=== PATIENT | male | born 1975 | race Caucasian/White ===

== ENCOUNTER 2018-01-27 12:18 | Emergency (ER) | payer OTHER ==
[~2018-01-27] VITALS: Ht 182.9 cm; Wt 87.6 kg
[2018-01-27 12:24] VITALS: TEMP 36.8; Ht 182.9 cm; Wt 87.6 kg
[2018-01-27] MEDS ORDERED: ONDANSETRON INJ 2 MG/ML 2 ML VIAL ONE (12:45)
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
[2018-01-27] MEDS ORDERED: NURSING VERBAL MED ORDER ONE (12:50)
[2018-01-27] MEDS ORDERED: OPTIRAY 320 IV PRN (13:00)
[2018-01-27 13:04] LABS: BASO % 0.1 %; BASO ABS # 0.01 K/uL (0-0.2); EOS % 0.9 %; EOS ABS # 0.09 K/uL (0-0.5); HEMATOCRIT 41.7 % (42-52); HEMOGLOBIN 14.6 g/dL (14.0-18.0); IG# 0.02 K/uL (0.00-0.02); LYMPH % 14.4 %; LYMPH ABS # 1.46 K/uL (1.2-3.4); MEAN CELL VOLUME 83.7 fL (80-100); MEAN CORPUSCULAR HEMOGLOBIN 29.3 pg (25-34); MEAN PLATELET VOLUME 9.9 fL (7.4-10.4); MONO % 8.6 %; MONO ABS # 0.87 K/uL (0.11-0.59); NEUT % 75.8 %; NEUT ABS # 7.72 K/uL (1.4-6.5); PLATELET COUNT 192 K/uL (130-400); RED CELL DISTRIBUTION WIDTH CV 12.8 % (11.5-14.5); RED CELL DISTRIBUTION WIDTH SD 38.4 fL (36.4-46.3); WHITE BLOOD COUNT 10.17 K/uL (4.8-10.8)
[2018-01-27 13:20] LABS: ISTAT CREATININE 0.9 mg/dl (0.6-1.3); ISTAT IONIZED CALCIUM 1.13 mmol/l (1.12-1.32); ISTAT POTASSIUM 3.5 mEq/L (3.3-5.0)
[2018-01-27 13:26] LABS: ALBUMIN 3.8 gm/dl (3.4-5.0); ALKALINE PHOSPHATASE 86 U/L (45-117); ALT/SGPT 42 U/L (12-78); AST/SGOT 29 U/L (15-37); BLOOD UREA NITROGEN 14 mg/dl (7-18); CALCIUM 8.3 mg/dl (8.5-10.1); CARBON DIOXIDE 28 mmol/L (21-32); GLUCOSE 104 mg/dl (70-99); LIPASE 79 U/L (73-393); POTASSIUM 3.5 mmol/L (3.5-5.1); SODIUM 139 mmol/L (136-145); TOTAL PROTEIN 7.4 gm/dl (6.4-8.2)
[2018-01-27] MEDS ORDERED: PATIENT'S ALLERGY INFO NEEDS ENTERED SCH (13:30)
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
--- NOTE | 2018-01-27 14:17 | DIAGNOSTIC IMAGING REPORT ---
CT (CHEST) THORAX WITH CT DOSE: 1632.02 mGycm HISTORY: Pain trauma TECHNIQUE: Multiaxial CT images of the chest were performed following the intravenous administration of contrast. A dose lowering technique was utilized adhering to the principles of ALARA. COMPARISON: None. FINDINGS: The lungs are clear. The mediastinal vascular structures are within normal limits. No mediastinal or hilar lymphadenopathy. No pleural effusion or pneumothorax. Limited views of the upper abdomen demonstrate a normal liver and spleen. IMPRESSION: No significant abnormality identified within the chest. The above report was generated using voice recognition software. It may contain grammatical, syntax or spelling errors. Electronically signed by: Cesar Herrera M.D. 01/27/2018 2:16 PM Dictated Date/Time: 01/27/2018 2:13 PM
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
--- NOTE | 2018-01-27 14:50 | DIAGNOSTIC IMAGING REPORT ---
R FEMUR 2 VIEWS ROUTINE CLINICAL HISTORY: trauma/pain pain COMPARISON: None. DISCUSSION: The bones and joint spaces appear intact. There is no evidence of fracture, dislocation or bony disease. There is no evidence for soft tissue swelling. IMPRESSION: Negative study. The above report was generated using voice recognition software. It may contain grammatical, syntax or spelling errors. Electronically signed by: Cesar Herrera M.D. 01/27/2018 2:49 PM Dictated Date/Time: 01/27/2018 2:48 PM
--- NOTE | 2018-01-27 14:51 | DIAGNOSTIC IMAGING REPORT ---
L KNEE 1 OR 2 VIEWS ROUTINE CLINICAL HISTORY: trauma, pain COMPARISON: None. DISCUSSION: No acute bony abnormality. Soft tissue disruption superior and lateral to the patella. No well-defined fracture or air-fluid level. No fat fluid level. IMPRESSION: Soft tissue disruption. No acute bony abnormality. The above report was generated using voice recognition software. It may contain grammatical, syntax or spelling errors. Electronically signed by: Cesar Herrera M.D. 01/27/2018 2:50 PM Dictated Date/Time: 01/27/2018 2:49 PM
--- NOTE | 2018-01-27 14:52 | DIAGNOSTIC IMAGING REPORT ---
L FEMUR 2 VIEWS ROUTINE CLINICAL HISTORY: trauma/pain pain COMPARISON: None. DISCUSSION: The bones and joint spaces appear intact. There is no evidence of fracture, dislocation or bony disease. There is no evidence for soft tissue swelling. IMPRESSION: Negative study. Soft tissue disruption superior to the patella The above report was generated using voice recognition software. It may contain grammatical, syntax or spelling errors. Electronically signed by: Cesar Herrera M.D. 01/27/2018 2:51 PM Dictated Date/Time: 01/27/2018 2:50 PM
[2018-01-27] MEDS ORDERED: LIDO/EPINEPHRINE/SOD BICARB 20 ML VIAL ONE (14:55)
[2018-01-27 18:07] VITALS: BP 146/77; PULSE 74; O2SAT 98
== END 2018-01-27 18:23 | disposition home or self-care (01) ==
LOC: EDBD 12:18 → C.EDC 12:19
DX: S00.81XA Abrasion of other part of head, initial encounter (principal); S81.012A Laceration without foreign body, left knee, initial encounter; V23.4XXA Motorcycle driver injured in collision with car, pick-up truck or van in traffic accident, initial encounter; Y92.410 Unspecified street and highway as the place of occurrence of the external cause